=== PATIENT | male | born 1955 | race Caucasian/White ===

== ENCOUNTER 2020-08-12 07:56 | Outpatient (REF) | payer OTHER, SELFPAY ==
[2020-08-12 09:35] LABS: Alanine Aminotransferase 17 U/L (0-40); Anion Gap 11 (12-20); Aspartate Amino Transferase 12 U/L (5-37); Blood Urea Nitrogen 17 mg/dL (9-16); Calcium 9.9 mg/dL (8.4-10.2); Carbon Dioxide 31 mmol/L (22-29); Chloride 99 mmol/L (96-108); Cholesterol 127 mg/dL; Estimated Glomerular Filt Rate > 60; Glucose Fasting 136 mg/dL (60-99); HDL Cholesterol 38 mg/dL; LDL Cholesterol Calculated 68 mg/dl; Potassium 4.2 mmol/L (3.3-5.1); Sodium 137 mmol/L (135-145); Triglycerides 109 mg/dL
[2020-08-12 09:57] LABS: PSA,Total (Free>4and<10) 0.35 ng/mL (0.00-4.00)
[2020-08-12 10:31] LABS: Creatinine Urine 176.56 mg/dL; Microalbum/Creatinine Ratio Ur 41.9 ug/mg cr
== END 2020-08-12 07:57 | disposition home or self-care (01) ==
LOC: HO.LAB 07:56
PROVIDERS: PCP Internal Medicine; Visit Provider Internal Medicine
DX: Z12.5 Encounter for screening for malignant neoplasm of prostate (principal); E11.9 Type 2 diabetes mellitus without complications; I10 Essential (primary) hypertension; E78.5 Hyperlipidemia, unspecified; Z79.4 Long term (current) use of insulin
CPT/HCPCS: 36415; 80048; 80061; 82043; 84153; 84450; 84460

== ENCOUNTER 2022-01-08 07:40 | Outpatient (REF) | payer OTHER, SELFPAY ==
[2022-01-08 08:08] LABS: MANUAL DIFF FLAG NO
[2022-01-08 08:47] LABS: Basophils Absolute Auto 0.1 X10*3/uL (0.0-0.2); Basophils Percent Auto 1.1 % (0-2); Eosinophils Absolute Auto 0.3 X10*3/uL (0.0-0.4); Eosinophils Percent Auto 3.2 % (0-4); Hematocrit 44.4 % (42.0-52.0); Hemoglobin 14.1 g/dl (14.0-18.0); Imm Gran Abs Auto 0.07 X10*3/uL (0.00-0.03); Imm Gran Pct Auto 0.8 % (0.0-0.4); Lymphocytes Percent Auto 23.9 % (20-40); Mean Corpuscular HGB Conc 31.8 g/dl (31.0-36.0); Mean Corpuscular Volume 85.1 fL (80.0-98.0); Mean Platelet Volume 10.6 fL (9.4-12.4); Monocytes Absolute Auto 0.8 X10*3/uL (0.1-1.2); Monocytes Percent Auto 9.4 % (2-11); Neutrophils Absolute Auto 5.3 x10*3/uL (2.0-8.3); Neutrophils Percent Auto 61.6 % (45-73); Platelet Count 280 X10*3/uL (160-400); Red Blood Count 5.22 X10*6/uL (4.60-5.80); Red Cell Distribution Width 12.9 % (11.0-16.0); White Blood Count 8.5 X10*3/uL (4.8-10.8)
[2022-01-08 09:07] LABS: Alanine Aminotransferase 18 U/L (0-40); Anion Gap 16 (12-20); Aspartate Amino Transferase 18 U/L (5-37); Blood Urea Nitrogen 19 mg/dL (9-16); Calcium 9.7 mg/dL (8.4-10.2); Carbon Dioxide 28 mmol/L (22-29); Chloride 100 mmol/L (96-108); Cholesterol 227 mg/dL; Estimated Glomerular Filt Rate > 60; Glucose Fasting 139 mg/dL (60-99); HDL Cholesterol 40 mg/dL; LDL Cholesterol Calculated 150 mg/dl; Potassium 4.3 mmol/L (3.3-5.1); Sodium 140 mmol/L (135-145); Triglycerides 186 mg/dL
[2022-01-08 09:09] LABS: Creatinine Urine 217.75 mg/dL; Microalbum/Creatinine Ratio Ur 52.8 ug/mg cr
[2022-01-08 09:29] LABS: PSA,Total (Free>4and<10) 0.51 ng/mL (0.00-4.00); Vitamin D 25-OH Total 25.9 ng/mL (>30)
== END 2022-01-08 07:41 | disposition home or self-care (01) ==
LOC: HO.LAB 07:40
PROVIDERS: PCP Internal Medicine; Visit Provider Internal Medicine
DX: E11.29 Type 2 diabetes mellitus with other diabetic kidney complication (principal); R80.9 Proteinuria, unspecified; E66.01 Morbid (severe) obesity due to excess calories; E78.5 Hyperlipidemia, unspecified; I10 Essential (primary) hypertension; Z12.5 Encounter for screening for malignant neoplasm of prostate
CPT/HCPCS: 36415; 80048; 80061; 82043; 82306; 84153; 84450; 84460; 85025

== ENCOUNTER 2023-05-08 08:49 | Outpatient (REF) | payer OTHER, SELFPAY ==
[2023-05-08 09:28] LABS: Estimated Average Glucose 137 mg/dL; Hemoglobin A1C 139.3408 umol/L; Hemoglobin A1c % 6.4 % (<6.0)
[2023-05-08 10:01] LABS: Creatinine Urine 139.36 mg/dL; Microalbum/Creatinine Ratio Ur 48.7 ug/mg cr (<30)
[2023-05-08 10:19] LABS: Alanine Aminotransferase 34 U/L (0-40); Anion Gap 15 (12-20); Aspartate Amino Transferase 22 U/L (5-37); Blood Urea Nitrogen 17 mg/dL (9-16); Calcium 9.6 mg/dL (8.4-10.2); Carbon Dioxide 26 mmol/L (22-29); Chloride 99 mmol/L (96-108); Cholesterol 213 mg/dL (<200); Estimated Glomerular Filt Rate 59; Glucose Fasting 180 mg/dL (60-99); HDL Cholesterol 39 mg/dL (>40); LDL Cholesterol Calculated 141 mg/dL (<100); Potassium 4.3 mmol/L (3.3-5.1); Sodium 136 mmol/L (135-145); Triglycerides 167 mg/dL (<150)
[2023-05-08 10:20] LABS: Vitamin D 25-OH Total 38.8 ng/mL (>30)
== END 2023-05-08 08:50 | disposition home or self-care (01) ==
LOC: HO.LAB 08:49
PROVIDERS: PCP Internal Medicine; Visit Provider Internal Medicine
DX: E11.29 Type 2 diabetes mellitus with other diabetic kidney complication (principal); R80.9 Proteinuria, unspecified; E66.01 Morbid (severe) obesity due to excess calories; I10 Essential (primary) hypertension; E78.5 Hyperlipidemia, unspecified; Z79.4 Long term (current) use of insulin
CPT/HCPCS: 36415; 80048; 80061; 82043; 82306; 82570; 83036; 84450; 84460

== ENCOUNTER 2023-07-30 10:38 | Outpatient (AMB) | payer OTHER, SELFPAY ==
[2023-07-30 10:50] VITALS: BP 152/80; PULSE 98; O2SAT 99; BMI 40.7
--- NOTE | 2023-07-30 10:50 | A.OFFPC_ITS ---
Vital Signs 07/30/23 10:50 Height 5 ft 10 in Weight 284 lb BMI 40.7 BP 152/80 H Blood Pressure Location Lt brachial Position Sitting Pulse 98 Pulse Source Pulse Oximeter Pulse Oximetry (%) 99 Oxygen Delivery Method Room Air Intake Visit Reasons: lab review Intake Note: Pt is here today today for his lab results Allergies No Known Allergies Allergy (Verified 07/30/23 11:12) Medication List - Last Reconciled 07/30/23 by Yanira Ayala MD aspirin (Adult Low Dose Aspirin) 81 mg PO DAILY BD Ultra-Fine Orig Pen Needle (pen needle, diabetic) USE DIRECTED ONCE A DAY NS blood sugar diagnostic (Contour Test Strips) Test blood sugars twice per day blood-glucose meter (Contour Next Gen Meter kit) As directed hydrochlorothiazide 25 mg PO DAILY insulin glargine (Lantus Solostar U-100 Insulin) 18 units (0.18 mL) subcut DAILY lancets (Microlet Lancet) Test blood sugars twice per day metformin 1,000 mg PO BID metoprolol succinate ER 100 mg PO DAILY 90 days olmesartan 40 mg PO DAILY 90 days Tobacco use date assessed: 07/30/23 Fall risk assessment: No Falls in past year Last assessed Fall Risk: 07/30/23 Dental Screening Dental Screen Date: 07/30/23 Did you have a dental visit in the last 12 months?: No Was dental information given to patient?: Patient has dentist HPI lab review HPI Details 67-year-old male with hypertension, diab etes mellitus, morbid obesity, and dyslipidemia, here today for follow-up . Patient admits that he has not been compliant with diet nor the has he been getting any regular exercise lately. Has gained about 14 lb since last visit here 2 years ago.. Blood pressure elevated today. Denies any headache, no chest pain or palpitations, no shortness of breath or lightheadedness. Fasting labs done May 2023 showed hemoglobin A1c at 6.4%, but recent fasting glucose elevated, and fasting lipids showed elevated LDL and low HDL cholesterol. 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 Brother No problems noted. Brother No problems noted. Brother No problems noted. Brother No problems noted. Sister No problems noted. Sister No problems noted. Social History Housing: House Alcohol intake: former Patient Tobacco Use Status: Former Tobacco user e-Cigarette/Vaping Use: Never Used Current occupational status: retired Cognitive needs: No Hearing needs: No Vision needs: Yes Questionnaire PHQ-9 Over the last 2 weeks, how often have you been bothered by any of the following problems? 1. Little interest or pleasure in doing things: not at all 2. Feeling down, depressed, or hopeless: not at all 3. Trouble falling or staying asleep, or sleeping too much: not at all 4. Feeling tired or having little energy: not at all 5. Poor appetite or overeating: not at all 6. Feeling bad about yourself - or that you are a failure or have let yourself or your family down: not at all 7. Trouble concentrating on things, such as reading the newspaper or watching television: not at all 8. Moving or speaking so slowly that other people could have noticed. Or the opposite - being so fidgety or restless that you have been moving around a lot more than usual: not at all 9. Thoughts that you would be better off or of hurting yourself in some way: not at all Total score: 0 Depression Screening Interpretation: Negative Depression Screening Done: Yes 92916 - PHQ-9 Billing: Yes Source: Developed by Drs. Kolby Costello, Rubina Lara, Sawyer Hdz and colleagues, with an educational svetlana from [employer]. Thrive Questionnaire Date Thrive assessed: 07/30/23 I am a: Patient What is your living situation today?: I have a steady place to live Within the past 12 months, did the food you bought not last and you didn't have the money to get more?: Never true Within the past 12 months, did you worry whether your food would run out before you got money to buy more?: Never true Do you have trouble paying for medicines?: No Do you have trouble getting transportation to medical appointments?: No Do you have trouble paying your heating and electricity bill?: No Do you have trouble taking care of your child, family member or friend?: No Do you have trouble with day-to-day activities such as bathing, preparing meals, shopping, managing finances, etc.?: No Are you currently unemployed and looking for a job?: No Are you interested in more education?: No THRIVE Score: 0 AUDIT C Alcohol Use Questionnaire (AUDIT-C) 1. How often do you have a drink containing alcohol?: Monthly or less 2. How many drinks containing alcohol do you have on a typical day when you are drinking?: 1 or 2 3. How often do you have six or more drinks on one occasion?: Never Total Score: 1 BERNICE-7 AMB Questionnaire BERNICE-7 Date BERNICE - 7 assessed: 07/30/23 Feeling nervous, anxious, or on edge: 0 = Not at all Not being able to stop or control worryin = Not at all Worrying too much about different things: 0 = Not at all Trouble relaxin = Not at all Being so restless that it is hard to sit still: 0 = Not at all Becoming easily annoyed or irritable: 0 = Not at all Feeling afraid as if something awful might happen: 0 = Not at all Total BERNICE-7 score (0-4 normal; 5-9 mild; 10-14 moderate; 15-21 severe): 0 Source: Developed by Drs. Kolby Costello, Rubina Lara, Sawyer Hdz and colleagues, with an educational svetlana from [employer]. BERNICE-7 Assessment Billing BERNICE-7 Assessment Tool: BERNICE-7 Assessment 49143 Review of Systems Const Denies body aches, Denies fatigue, Denies fever(s) and Denies weakness Eyes Denies change in vision ENT Reports Normal hearing present, Denies dizziness, Denies nasal congestion and Denies nasal discharge Card Denies chest pain, Denies lightheadedness, Denies palpitations and Denies dyspnea Resp Denies chest congestion, Denies cough, Denies dyspnea and Denies wheezing GI Denies abdominal pain, Denies melena, Denies hematochezia, Denies change in bowel habits and Denies heartburn Denies hematuria, Denies difficulty urinating, Reports erectile dysfunction, Denies dysuria, Denies penile discharge, Denies testicular pain and Denies urinary frequency Musc Denies back pain, Denies arthralgias, Reports stiffness and Denies tingling Skin/Breast Denies lesions and Denies rash Neuro Reports Normal hearing present, Denies dizziness, Denies tingling, Denies parest hesias and Denies weakness Psych Reports as per HPI Endo Denies fatigue, Denies polydipsia, Denies polyuria and Denies palpitations Travon/Lymph Denies easy bleeding and Denies easy bruising Aller/Immun Denies seasonal rhinorrhea and Denies wheezing Physical exam (Primary Care) Vital Signs: Last Vital Signs Pulse 98 07/30/23 10:50 BP 152/80 H 07/30/23 10:50 Pulse Ox 99 07/30/23 10:50 Oxygen Delivery Method Room Air 07/30/23 10:50 BMI result Body Mass Index 40.7 BMI Assessment/Plan discussion: High BMI High, discussed plan: weight reduction, dietary, physical activity and alcohol moderation Tobacco/Smoking Status: Tobacco use Status Tobacco use date assessed 07/30/23 07/30/23 10:52 Patient Tobacco Use Status Former Tobacco user 07/30/23 10:52 e-Cigarette/Vaping Use Never Used 07/30/23 10:52 Are you ready to quit: No Tobacco cessation counseling provided: Yes PHQ-9: PHQ-9 Score PHQ-9: Total score 0 08/01/23 16:00 Depression Screening Interpretation: Negative Thrive Assessment: Date of Thrive Assessment Date Thrive assessed 07/30/23 07/30/23 10:55 Const General: cooperative Nutritional Appearance: obese Orientation/consciousness: patient oriented x3 HENMT Head: Yes normal to inspection and Yes normocephalic Ears: hearing grossly normal bilaterally, TM's normal bilaterally and EAC's normal General nose exam: Normal external nose present and No nasal discharge present Mouth: Normal oral and palatal mucosa present and moist mucous membranes Eyes General: appearance normal, both eyes and all related structures Neck Neck: Yes full ROM, Yes no lymphadenopathy and Yes supple Thyroid: Thyroid normal Resp Auscultation: clear to auscultation bilaterally, no rales, no rhonchi and no wheezes Cardio Palpation: normal PMI Rate: regular rate Rhythm: regular rhythm Heart sounds: S1 normal heart sound present and S2 normal heart sound present Peripheral pulses: popliteal pulses present, posterior tibial pulses present and dorsalis pedis present GI Inspection: Yes obesity Palpation (GI): Soft to palpation, nontender, no guarding and no masses Auscultation: normal bowel sounds Male General Exam: Yes normal external exam Back/Spine/Pelvis Back: No back tenderness Skin General skin exam: no rashes or lesions noted and dry skin Neuro General: patient oriented x3 Cranial nerves: Yes Normal hearing present Extrem General: Yes full ROM, Yes no joint enlargement, Yes no clubbing, cyanosis or edema, Yes no pedal edema and Yes no calf tenderness Psych Appearance: grossly normal and well kempt Mental Status: mental status grossly normal Speech and movement: Normal speech and movement present Affect: normal affect Results Reviewed Results Reviewed: Name: Suleiman Betts Age/Sex: 67/M : 1955 Unit#: [id number] Attend Dr: Yanira Ayala MD Re05/08/23 Status: DEP [facility] Disch: SPEC : [id number] MATTI: 05/08/23 STATUS: COMP REQ : [id number] RECD: 05/08/[address]: Yanira Ayala MD COMP: 05/08/23 ENTERED: 05/08/[address]: ORDERED: Met Prof Fast, AST, ALT, Lipid Panel, Vitamin D 25-OH Test Result Flag Reference Sodium 136 135-145 mmol/L Potassium 4.3 3.3-5.1 mmol/L CL 99 96-108 mmol/L CO2 26 22-29 mmol/L Gap 15 12-20 BUN 17 H 9-16 mg/dL Creat 1.24 0.5-1.4 mg/dL EGFR 59 NOTE: For -[place] individuals, multiply the result by 1.210. Chronic Kidney Disease: Estimated GFR < 60 mL/min/1.73m2 Severe Kidney Disease: Estimated GFR < 15 mL/min/1.73m2 FBS 180 H 60-99 mg/dL A fasting glucose of 126 mg/dl or greater on more than one occasion is considered diagnostic of diabetes. CA 9.6 8.4-10.2 mg/dL AST (GOT) 22 5-37 U/L ALT (GPT) 34 0-40 U/L Triglyceride 167 H <150 mg/dL Desirable Triglyceride: less than 150 mg/dL Borderline High Triglyceride 150-199 mg/dL High Triglyceride: 200-499 mg/dL Very High Triglyceride: greater than or equal to 5OO mg/dL Cholesterol 213 H <200 mg/dL Desirable Cholesterol: less than 200 mg/dL Borderline High Cholesterol: 200-239 mg/dL High Cholesterol: greater than 239 mg/dL LDL Calculated 141 H <100 mg/dL Desirable LDL: less than 100 mg/dL Near Optimal/Above Optimal LDL: 110-129 mg/dL Borderline High LDL: 130-159 mg/dL High LDL: 160-189 mg/dL Very High LDL: greater than or equal to 190 mg/dL HDL 39 L >40 mg/dL Desirable HDL: greater than 40 mg/dL Note: This HDL assay may give artificially low results in patients with liver disease. Vit D 25-OH Tot 38.8 >30 ng/mL Health Based Reference Values* < 20 ng/mL Deficient 20-30 ng/mL Insufficient > 30 ng/mL Sufficient Laboratory Tests 12/17/21 05/08/23 05/08/23 10:45 08:57 09:01 Estimat Average Glucose 137 Hgb A1c (Clinic) 5.9 Hemoglobin A1c % 6.4 H Urine Creatinine 139.36 Urine Microalbumin 68.0 Microalb/Creat Ratio 48.7 H Assessment and Plan Assessment & Plan (1) Diabetes mellitus with microalbuminuria, with long-term current use of insulin: Code(s): E11.29 - Type 2 diabetes mellitus with other diabetic kidney complication; R80.9 - Proteinuria, unspecified; Z79.4 - terminal system operator (current) use of insulin Plan: Continue metformin a 1000 mg 1 tab twice a day, started on Mounjaro 2.5 mg injected once weekly. reiforced importance of following low-cholesterol diet and getting regular exercise patient instructed on proper use of the medication, discussed possible side effects from medication. Will see him back for follow- up in a month. Check fasting glucose at least twice a day and lower insulin dose depending on blood sugar readings as discussed., will see him back for follow-up in a month (2) Dyslipidemia: Code(s): E78.5 - Hyperlipidemia, unspecified Plan: Reinforced importance of following a low-cholesterol diet and getting regular exercise will repeat another fasting lipid panel in 3 months (3) Essential hypertension: Code(s): I10 - Essential (primary) hypertension Plan: Blood pressure not at goal of less than 130/80. Continue metoprolol succinate ER 100 mg daily and olmesartan 40 mg daily as well as hydrochlorothiazide 25 mg daily.. Reinforced importance of following a low sodium diet, getting regular exercise, and lowering stress levels. Started on Mounjaro , and will see if blood pressure goes down to normal limits after a month (4) Morbid obesity due to excess calories: Code(s): E66.01 - Morbid (severe) obesity due to excess calories Plan: Reinforced importance of following low-cholesterol diet, started on Mounjaro 2.5 mg injected once weekly. Forced importance of following low-cholesterol diet and getting regular exercise patient instructed on proper use of the medication, discussed possible side effects from medication. Will see him back for follow- up in a month Medications: New Mounjaro (tirzepatide) 2.5 mg (0.5 mL) subcut QWEEK 1 month 2 mL 1RF NS E11.29 - Type 2 diabetes mellitus with other diabetic kidney complication, E66.01 - Morbid (severe) obesity due to excess calories, E78.5 - Hyperlipidemia, unspecified, I10 - Essential (primary) hypertension, R80.9 - Proteinuria, unspecified, Z79.4 - terminal system operator (current) use of insulin Coding Level of Care Code Est Pt Level 4 (27994) Diagnoses Diabetes mellitus with microalbuminuria, with long-term current use of insulin E11.29; R80.9; Z79.4 Dyslipidemia E78.5 Essential hypertension I10 Morbid obesity due to excess calories E66.01 Additional Codes BERNICE-7 Assessment Billing - BERNICE-7 Assessment Tool: BERNICE-7 Assessment [id number] ([id number])
== END 2023-07-30 12:08 | disposition home or self-care (01) ==
PROVIDERS: PCP Internal Medicine; Visit Provider Internal Medicine
DX: E11.29 Type 2 diabetes mellitus with other diabetic kidney complication (principal); Z79.4 Long term (current) use of insulin; E66.01 Morbid (severe) obesity due to excess calories; Z68.41 Body mass index [BMI] 40.0-44.9, adult; R80.9 Proteinuria, unspecified; E78.5 Hyperlipidemia, unspecified; I10 Essential (primary) hypertension
CPT/HCPCS: 99214